=== PATIENT | female | born 1965 | race Caucasian/White ===

== ENCOUNTER → 2018-08-22 | Outpatient (CLI) | payer OTHER ==
[~2018-08-22] MED LIST: AUD IH; HYDR12.530 PO; LORA10CA PO
== END | disposition home or self-care (01) ==
LOC: RAH 13:02
PROVIDERS: ATTEND Physician Assistant Medical
DX: N60.02 Solitary cyst of left breast (principal); R92.2 Inconclusive mammogram
CPT/HCPCS: 76641; 77066

== ENCOUNTER → 2019-03-30 | Outpatient (CLI) | payer OTHER | END | disposition home or self-care (01) | LOC: RAH 13:03 | PROVIDERS: ATTEND Physician Assistant Medical | DX: N60.01 Solitary cyst of right breast (principal) | CPT/HCPCS: 76641 ==

== ENCOUNTER → 2020-05-16 | Outpatient (CLI) | payer OTHER | END | disposition home or self-care (01) | LOC: RAH 12:41 | PROVIDERS: ATTEND Physician Assistant Medical | DX: N60.01 Solitary cyst of right breast (principal); N60.02 Solitary cyst of left breast; R59.0 Localized enlarged lymph nodes; N63.0 Unspecified lump in unspecified breast | CPT/HCPCS: 77066 ==

== ENCOUNTER → 2021-08-07 | Outpatient (CLI) | payer OTHER ==
[~2021-08-07] MED LIST changes: +LIDOCAINE HCL MPF 1% 5ML VIAL ONE
== END | disposition home or self-care (01) ==
LOC: RAH 07:57
PROVIDERS: ATTEND Family Medicine
DX: N60.02 Solitary cyst of left breast (principal); N60.19 Diffuse cystic mastopathy of unspecified breast; E03.9 Hypothyroidism, unspecified; J45.909 Unspecified asthma, uncomplicated; Z87.891 Personal history of nicotine dependence; Z98.890 Other specified postprocedural states; Z82.49 Family history of ischemic heart disease and other diseases of the circulatory system
CPT/HCPCS: 19000; J3490